=== PATIENT | female | born 1965 | race Caucasian/White ===

== ENCOUNTER 2018-02-01 20:59 | Emergency (ER) | payer MEDICAID ==
[2018-02-01] MEDS: IBUPROFEN 600 MG TAB PO (22:39)
[2018-02-01 22:40] LABS: URINE BLOOD (Dip) POC 3+ (NEGATIVE); URINE KETONES (Dip) POC Negative (NEGATIVE); URINE LEUKOCYTE EST (Dip) POC 2+ (NEGATIVE); URINE NITRITE (Dip) POC Negative (NEGATIVE); URINE TOTAL PROTEIN POC 1+ (NEGATIVE)
[2018-02-01] MEDS: CEFTRIAXONE 1 GM INJ IM (23:09)
== END 2018-02-01 23:13 | disposition home or self-care (01) ==
LOC: FTE 20:59
DX: N39.0 Urinary tract infection, site not specified (principal)
CPT/HCPCS: 81003; 81025; 96372; 99284-25